=== PATIENT | female | born 1985 | race Caucasian/White ===

== ENCOUNTER 2016-12-07 12:34 | Emergency (ER) | payer OTHER ==
--- NOTE | 2016-12-07 12:45 | ED Physician Documentation ---
General Adult - HISTORIAN Historian: patient - HPI Chief Complaint: Palpitations Onset: minutes (35 minutes ago), hours Timing: still present Further Comments: yes (Patient states that she started to feel funny and noticed that she has had some tachycardia. No tsure how fast it was beating. [place] a little anxious. No syncopal episode. No realted stress of mental issues. No caffein today.) - ROS CONST: no problems. denies: fever, chills GI/: denies: problems urinating, vomiting, nausea, diarrhea - PAST HX Past History: none Other History: none Surgeries/Procedures: other (leep) Allergies/Adverse Reactions: Allergies Allergy/AdvReac Type Severity Reaction Status Date / Time No Known Drug Allergies Allergy Verified 12/07/16 12:48 Home Medications: Ambulatory Orders Medication Instructions Recorded NK [NK] 07/07/14 - SOCIAL HX Smoking History: non-smoker Alcohol Use: occasionally Drug Use: none - FAMILY HX Family History: No - VITAL SIGNS Vital Signs: Vital Signs Temp Pulse Resp BP Pulse Ox 117/71 04/28/15 22:17 - REVIEWED ASSESSMENTS Nursing Assessment Reviewed: Yes Vitals Reviewed: Yes Progress - Progress Progress: 13:18 Patient seems to be doing better, HR 82 - EKG/XRAY/CT EKG: NSR, nonspecific ST T wave chg General Adult Physical Exam - PHYSICAL EXAM GENERAL APPEARANCE: mild distress (anxious) EENT: ENT inspection normal NECK: normal inspection, thyroid normal, supple. No: lymphadenopathy RESPIRATORY: no resp distress, chest non-tender CVS: heart sounds normal, equal pulses, no murmur, no gallop, tachycardia (mild 112, regular) ABDOMEN: soft, no organomegaly, normal bowel sounds, no abdominal bruit, no distension BACK: normal inspection, no CVA tenderness SKIN: warm/dry, normal color EXTREMITIES: non-tender, no edema NEURO: oriented X3, cognition normal Discharge Clincal Impression: Palpitation Referrals: Jayne Austin MD [Primary Care Provider] - 2 Days Additional Instructions: Home and rest. Avoid caffeine, weight loss supplements, and see your primary care provider for further evaluation. Home Medications: Ambulatory Orders NK [NK] 07/07/14 Condition: Stable Disposition: 01 HOME, SELF-CARE Decision to Admit: NO Date of Decison to Admit: 12/07/16 Decision Time: 13:18
[2016-12-07 13:13] LABS: BASOPHILS % 0.6 (0.0-1.5); MEAN CORPUSCULAR HEMOGLOBIN 30.7 pg (28.0-34.0); MEAN CORPUSCULAR VOLUME 89.7 fl (80.0-100.0); MONOCYTES % 5.1 % (0.0-11.0); NEUTROPHILS # 5.6 # k/uL (1.4-7.7)
[2016-12-07 13:30] LABS: eGFR (African) > 60; eGFR (Non-African) > 60
[2016-12-07 13:45] VITALS: BP 108/59
[2016-12-07 19:21] LABS: T3-UPTAKE 33.6 % (25.4-41.2)
== END 2016-12-07 13:35 | disposition home or self-care (01) ==
LOC: ED 12:34
DX: R00.2 Palpitations (principal)
CPT/HCPCS: 80053; 84436; 84479; 85025; 99283